=== PATIENT | female | born 1970 | race Caucasian/White ===

== ENCOUNTER → 2016-12-16 | Outpatient (CLI) | payer OTHER ==
[~2016-12-16] MED LIST: GADOBUTROL 10 MMOL/10 ML VIAL ONE
== END | disposition home or self-care (01) ==
LOC: CFH 12:02
PROVIDERS: ATTEND Family Medicine
DX: C50.512 Malignant neoplasm of lower-outer quadrant of left female breast (principal); N60.01 Solitary cyst of right breast; N63 Unspecified lump in breast
CPT/HCPCS: A9585; C8908

== ENCOUNTER 2018-02-04 19:57 | Emergency (ER) | payer OTHER ==
[~2018-02-04] VITALS: Ht 165.1 cm; Wt 58.8 kg
[2018-02-04] MEDS ORDERED: IBUPROFEN 200 MG TABLET ONE (20:37)
[2018-02-04] MEDS ORDERED: ACETAMINOPHEN 325 MG TABLET ONE (20:37)
[2018-02-04 21:55] VITALS: BP 129/72
== END 2018-02-04 21:57 | disposition home or self-care (01) ==
LOC: ED 21:51
DX: S16.1XXA Strain of muscle, fascia and tendon at neck level, initial encounter (principal); S39.012A Strain of muscle, fascia and tendon of lower back, initial encounter; V49.40XA Driver injured in collision with unspecified motor vehicles in traffic accident, initial encounter; Y93.89 Activity, other specified; Y99.8 Other external cause status; Y92.410 Unspecified street and highway as the place of occurrence of the external cause
CPT/HCPCS: 71046; 72020; 72050; 99284